=== PATIENT | female | born 1945 | race American Indian/Alaskan Native ===

== ENCOUNTER 2019-04-12 10:19 | Emergency (ER) | payer MEDICARE ==
--- NOTE | 2019-04-12 11:55 | Emergency Department Report ---
<KAIN ALVAREZ - Last Filed: 04/12/19 17:42> ED Abdominal Pain HPI - General Chief Complaint: Abdominal Pain Stated Complaint: LLQ PAIN Time Seen by Provider: 04/12/19 11:40 Source: EMS Mode of arrival: Stretcher Limitations: No Limitations - History of Present Illness Initial Comments: 73-year-old -Bul[place]ian female with a history of CVA and hypertension emergency department complaining of several day history of diarrhea and abdominal pain which she believes is secondary to patient. She was just palpitations no to take an qumw-ofl-poenwfr medications to help remey which has been unsuccessful. She is Dr. Fraga where she underwent a colonoscopy in January was prescribed some medication she states is not helping resolved constipation. She denies having constipation stools pressure and pain in the stomach is c onstipation causing the diarrhea as per her daughter's nursing friend. MD Complaint: abdominal pain -: Gradual, Sudden, week(s) (past several weeks) Location: LLQ Radiation: none Migration to: no migration Severity: mild Quality: dull Consistency: constant Improves With: nothing Worsens With: nothing Associated Symptoms: diarrhea. denies: dysuria, hematemesis, hematuria - Related Data Home Medications Medication Instructions Recorded Confirmed Last Taken Acetaminophen [Tylenol] 500 mg PO Q8H PRN 04/12/19 04/12/19 Unknown Aspirin/Dipyridamole 1 each PO DAILY 04/12/19 04/12/19 Unknown [Aspirin-Dipyridam ER 25-200 mg] Carvedilol [Coreg] 6.25 mg PO BID 04/12/19 04/12/19 Unknown Ibuprofen [Motrin] 800 mg PO TID 04/12/19 04/12/19 Unknown Losartan/Hydrochlorothiazide 1 each PO DAILY 04/12/19 04/12/19 Unknown [Hyzaar 100-12.5 Tablet] Omeprazole 20 mg PO DAILY 04/12/19 04/12/19 Unknown Rosuvastatin Calcium [Crestor] 10 mg PO QHS 04/12/19 04/12/19 Unknown amLODIPine [Norvasc] 10 mg PO DAILY 04/12/19 04/12/19 Unknown Previous Rx's Medication Instructions Recorded Last Taken Type Ciprofloxacin HCl [Ciprofloxacin 500 mg PO Q12HR #28 tab 04/12/19 Unknown Rx TAB] Hyoscyamine Subl [Levsin Sl 0.125 0.125 mg SL Q6HR PRN #20 tab 04/12/19 Unknown Rx TAB] Ondansetron [Zofran ODT TAB] 8 mg PO Q12HR #14 tab.rapdis 04/12/19 Unknown Rx metroNIDAZOLE [Flagyl] 500 mg PO Q12HR #28 tab 04/12/19 Unknown Rx Allergies Allergy/AdvReac Type Severity Reaction Status Date / Time No Known Allergies Allergy Verified 04/12/19 11:23 ED Past Medical Hx - Past Medical History Previous Medical History?: Yes Hx Hypertension: Yes Hx CVA: Yes (2012) - Surgical History Past Surgical History?: No - Social History Smoking Status: Never Smoker Substance Use Type: None - Medications Home Medications: Home Medications Medication Instructions Recorded Confirmed Last Taken Type Acetaminophen [Tylenol] 500 mg PO Q8H PRN 04/12/19 04/12/19 Unknown History Aspirin/Dipyridamole 1 each PO DAILY 04/12/19 04/12/19 Unknown History [Aspirin-Dipyridam ER 25-200 mg] Carvedilol [Coreg] 6.25 mg PO BID 04/12/19 04/12/19 Unknown History Ciprofloxacin HCl [Ciprofloxacin 500 mg PO Q12HR #28 tab 04/12/19 Unknown Rx TAB] Hyoscyamine Subl [Levsin Sl 0.125 0.125 mg SL Q6HR PRN #20 tab 04/12/19 Unknown Rx TAB] Ibuprofen [Motrin] 800 mg PO TID 04/12/19 04/12/19 Unknown History Losartan/Hydrochlorothiazide 1 each PO DAILY 04/12/19 04/12/19 Unknown History [Hyzaar 100-12.5 Tablet] Omeprazole 20 mg PO DAILY 04/12/19 04/12/19 Unknown History Ondansetron [Zofran ODT TAB] 8 mg PO Q12HR #14 tab.rapdis 04/12/19 Unknown Rx Rosuvastatin Calcium [Crestor] 10 mg PO QHS 04/12/19 04/12/19 Unknown History amLODIPine [Norvasc] 10 mg PO DAILY 04/12/19 04/12/19 Unknown History metroNIDAZOLE [Flagyl] 500 mg PO Q12HR #28 tab 04/12/19 Unknown Rx ED Physical Exam - General Limitations: No Limitations General appearance: alert, in no apparent distress - Head Head exam: Present: atraumatic, normocephalic - Eye Eye exam: Present: normal appearance - ENT ENT exam: Present: mucous membranes moist - Neck Neck exam: Present: normal inspection - Respiratory Respiratory exam: Present: normal lung sounds bilaterally. Absent: respiratory distress - Cardiovascular Cardiovascular Exam: Present: regular rate, normal rhythm. Absent: systolic murmur, diastolic murmur, rubs, gallop - GI/Abdominal GI/Abdominal exam: Present: soft, tenderness (LLQ), normal bowel sounds. Absent: guarding, rebound, mass, bruit, pulsatile mass - Extremities Exam Extremities exam: Present: normal inspection - Back Exam Back exam: Present: normal inspection - Neurological Exam Neurological exam: Present: alert, oriented X3 - Psychiatric Psychiatric exam: Present: normal affect, normal mood - Skin Skin exam: Present: warm, dry, intact, normal color. Absent: rash ED Medical Decision Making - Lab Data Result diagrams: 04/12/19 12:41 04/12/19 12:41 - Radiology Data Radiology results: report reviewed - Medical Decision Making 73-year-old Bulgarian female with a few week history of area lower abdominal pain with thisfor constipation. Her CT scan did support diverticulitis which we discussed with her in detail plan is to discharge her with Cipro Flagyl cocktail in conjunction with Zofran and Levsin for her intestinal associate pain. She expressed understanding. He had no other complaints or concerns. The patient has remained hemodynamically stable throughout entire ED visit ED Disposition Clinical Impression: Sigmoid diverticulitis Disposition: DC-01 TO HOME OR SELFCARE Is pt being admited?: No Does the pt Need Aspirin: No Condition: Stable Instructions: Diverticulitis (ED), Diverticulitis Diet (ED), Abdominal Pain (ED) Prescriptions: Ciprofloxacin HCl [Ciprofloxacin TAB] 500 mg PO Q12HR #28 tab metroNIDAZOLE [Flagyl] 500 mg PO Q12HR #28 tab Hyoscyamine Subl [Levsin Sl 0.125 TAB] 0.125 mg SL Q6HR PRN #20 tab PRN Reason: abdominal cramps and spasms Ondansetron [Zofran ODT TAB] 8 mg PO Q12HR #14 tab.[place] Referrals: JODEE HARRISON MD [Primary Care Provider] - 3-5 Days <ANDRES GOMEZ - Last Filed: 04/14/19 05:13> ED Review of Systems ROS: Stated complaint: LLQ PAIN Other details as noted in HPI ED Course Vital Signs 04/12/19 04/12/19 04/12/19 10:30 12:00 13:54 Temperature 98.2 F Pulse Rate 76 68 66 Respiratory 16 18 18 Rate Blood Pressure 153/66 Blood Pressure 150/76 143/67 [Left] O2 Sat by Pulse 100 99 100 Oximetry 04/12/19 04/12/19 15:23 17:04 Temperature Pulse Rate 66 71 Respiratory 18 18 Rate Blood Pressure Blood Pressure 135/56 138/78 [Left] O2 Sat by Pulse 100 100 Oximetry - Reevaluation(s) Reevaluation #1: 04/14/19 05:03 CT scan results are reviewed and appreciated by myself, they were resulted after my shift had ended, and I had left the department. It does not appear that this was discussed with another attending physician. We are going to have the patient called back for repeat evaluation, given possibility of mi croperforation. ED Medical Decision Making - Lab Data Result diagrams: 04/12/19 12:41 04/12/19 12:41 Critical care attestation.: If time is entered above; I have spent that time in minutes in the direct care of this critically ill patient, excluding procedure time. ED Disposition Is pt being admited?: No Does the pt Need Aspirin: No
--- NOTE | 2019-04-12 12:15 | XRay Report ---
ABDOMINAL SERIES WITH CHEST X-RAY ONE VIEW HISTORY: Constipation, abdominal pain. COMPARISON: None. FINDINGS: Supine and upright views the abdomen demonstrate no evidence for dilated bowel, fluid level s or free air. No evidence for constipation. No pathologic calcifications are detected. The organ sha dows are unremarkable. Single view of the chest is within normal limits. IMPRESSION: No significant abnormality. Signer Name: Giacomo Smith Jr, MD Signed: 04/12/2019 12:11 PM Workstation Name: [id number]
[2019-04-12] MEDS ORDERED: MORPHINE 2 MG/1 ML INJ IV ONE (12:16)
[2019-04-12] MEDS ORDERED: SODIUM CHLORIDE 0.9% 500 ML 500 ML IV ONE (12:19)
--- NOTE | 2019-04-12 12:20 | Event Note ---
Date of service: 04/12/19 Face to Face: 73-year-old female presenting with left lower quadrant abdominal pain. She endorses one bowel movement today and yesterday. She is fairly tender in her left lower quadrant. Plan is to check basic laboratory studies, treat symptoms, obtain EKG, CT scan of abdomen and pelvis, and reassess after data points. After initial pain medication, patient reportedly feeling improved. Lab Results 04/12/19 04/12/19 04/12/19 Range/Units 12:41 12:41 12:41 WBC 9.4 (4.5-11.0) K/mm3 RBC 3.92 (3.65-5.03) M/mm3 Hgb 12.2 (10.1-14.3) gm/dl Hct 36.5 (30.3-42.9) % MCV 93 (79-97) fl MCH 31 (28-32) pg MCHC 33 (30-34) % RDW 14.9 (13.2-15.2) % Plt Count 253 (140-440) K/mm3 Lymph % (Auto) 9.0 L (13.4-35.0) % [place] % (Auto) 7.9 H (0.0-7.3) % Eos % (Auto) 0.3 (0.0-4.3) % Baso % (Auto) 0.6 (0.0-1.8) % Lymph # 0.8 L (1.2-5.4) K/mm3 [place] # 0.7 (0.0-0.8) K/mm3 Eos # 0.0 (0.0-0.4) K/mm3 Baso # 0.1 (0.0-0.1) K/mm3 Seg Neutrophils % 82.2 H (40.0-70.0) % Seg Neutrophils # 7.7 (1.8-7.7) K/mm3 Sodium 140 (137-145) mmol/L Potassium 4.9 (3.6-5.0) mmol/L Chloride 103.7 (98-107) mmol/L Carbon Dioxide 27 (22-30) mmol/L Anion Gap 14 mmol/L BUN 11 (7-17) mg/dL Creatinine 1.0 (0.7-1.2) mg/dL Estimated GFR > 60 ml/min BUN/Creatinine Ratio 11 % Glucose 95 (65-100) mg/dL Lactic Acid 0.80 (0.7-2.0) mmol/L Calcium 9.3 (8.4-10.2) mg/dL Magnesium 2.20 (1.7-2.3) mg/dL Total Bilirubin 0.70 (0.1-1.2) mg/dL AST 27 (5-40) units/L ALT 25 (7-56) units/L Alkaline Phosphatase 109 (35-129) units/L Total Creatine Kinase 251 H (30-135) units/L Total Protein 7.4 (6.3-8.2) g/dL Albumin 3.9 (3.9-5) g/dL Albumin/Globulin Ratio 1.1 % Lipase 31 (13-60) units/L Lab Results 04/12/19 04/12/19 04/12/19 Range/Units 12:41 12:41 12:41 WBC 9.4 (4.5-11.0) K/mm3 RBC 3.92 (3.65-5.03) M/mm3 Hgb 12.2 (10.1-14.3) gm/dl Hct 36.5 (30.3-42.9) % MCV 93 (79-97) fl MCH 31 (28-32) pg MCHC 33 (30-34) % RDW 14.9 (13.2-15.2) % Plt Count 253 (140-440) K/mm3 Lymph % (Auto) 9.0 L (13.4-35.0) % [place] % (Auto) 7.9 H (0.0-7.3) % Eos % (Auto) 0.3 (0.0-4.3) % Baso % (Auto) 0.6 (0.0-1.8) % Lymph # 0.8 L (1.2-5.4) K/mm3 [place] # 0.7 (0.0-0.8) K/mm3 Eos # 0.0 (0.0-0.4) K/mm3 Baso # 0.1 (0.0-0.1) K/mm3 Seg Neutrophils % 82.2 H (40.0-70.0) % Seg Neutrophils # 7.7 (1.8-7.7) K/mm3 Sodium 140 (137-145) mmol/L Potassium 4.9 (3.6-5.0) mmol/L Chloride 103.7 (98-107) mmol/L Carbon Dioxide 27 (22-30) mmol/L Anion Gap 14 mmol/L BUN 11 (7-17) mg/dL Creatinine 1.0 (0.7-1.2) mg/dL Estimated GFR > 60 ml/min BUN/Creatinine Ratio 11 % Glucose 95 (65-100) mg/dL Lactic Acid 0.80 (0.7-2.0) mmol/L Calcium 9.3 (8.4-10.2) mg/dL Magnesium 2.20 (1.7-2.3) mg/dL Total Bilirubin 0.70 (0.1-1.2) mg/dL AST 27 (5-40) units/L ALT 25 (7-56) units/L Alkaline Phosphatase 109 (35-129) units/L Total Creatine Kinase 251 H (30-135) units/L Total Protein 7.4 (6.3-8.2) g/dL Albumin 3.9 (3.9-5) g/dL Albumin/Globulin Ratio 1.1 % Lipase 31 (13-60) units/L
[2019-04-12 13:03] LABS: Basophils # (Auto) 0.1 K/mm3 (0.0-0.1); Basophils % (Auto) 0.6 % (0.0-1.8); Eosinophils % (Auto) 0.3 % (0.0-4.3); Hematocrit 36.5 % (30.3-42.9); Hemoglobin 12.2 gm/dl (10.1-14.3); Lymphocytes # (Auto) 0.8 K/mm3 (1.2-5.4); Mean Corpuscular HGB Conc 33 % (30-34); Mean Corpuscular Volume 93 fl (79-97); Monocytes # (Auto) 0.7 K/mm3 (0.0-0.8); Monocytes % (Auto) 7.9 % (0.0-7.3); Platelet Count 253 K/mm3 (140-440); Red Blood Count 3.92 M/mm3 (3.65-5.03); Red Cell Distribution Width 14.9 % (13.2-15.2)
[2019-04-12 13:21] LABS: Alanine Aminotransferase 25 units/L (7-56); Albumin 3.9 g/dL (3.9-5); BUN/Creatinine Ratio 11; Blood Urea Nitrogen 11 mg/dL (7-17); Calcium 9.3 mg/dL (8.4-10.2); Hemolysis Index 13
[2019-04-12] MEDS ORDERED: SODIUM CHLORIDE 0.9% 1000 ML 1,000 ML IV ONE (13:21)
[2019-04-12] MEDS ORDERED: SODIUM CHLORIDE 0.9% 1000 ML 1,000 ML ONE (13:22)
[2019-04-12 14:25] LABS: Bacteria,Urine 1+ /HPF (Negative); Bilirubin,Urine NEG (Negative); Blood,Urine NEG (Negative); Color,Urine Straw (Yellow); Hyaline Casts,Urine 1 /LPF; Protein,Urine <15 mg/dL mg/dL (Negative); RBC,Urine < 1.0 /HPF (0.0-6.0); Urobilinogen,Urine < 2.0 mg/dL (<2.0)
--- NOTE | 2019-04-12 16:02 | Cat Scan Report ---
CT ABDOMEN AND PELVIS WITH CONTRAST HISTORY: Left lower quadrant abdominal pain, weakness COMPARISON: None. TECHNIQUE: Axial CT images were obtained through the abdomen and pelvis after 100 cc of Omnipaque 300 intravenously. Sagittal and coronal reformatted images. All CT scans at this location are performed using CT dose reduction for ALARA by means of automated exposure control. FINDINGS: CT ABDOMEN: Lung Bases: Clear. Liver: No significant abnormality. Biliary: No significant abnormality. Spleen: No significant abnormality. Unenlarged. Pancreas: No significant abnormality. Adrenals: No significant abnormality. Kidneys: There are a few scattered simple renal cysts bilaterally. The largest cyst measures 2.1 cm i n the superior right kidney. No evidence for mass, calculus or hydronephrosis. Lymphatics: No lymphadenopathy. Vasculature: Moderate aortic and iliac calcifications. No aneurysm. Bowel/Peritoneum: There are several diverticula throughout the length of the colon. There is a focal area of circumferential thickening and surrounding inflammatory change in the sigmoid region consiste nt with acute diverticulitis. No evidence for large free air or abscess. There does appear to be a fe w flecks of free air medial to the sigmoid colon. The remaining bowel loops are unremarkable. I belie ve I see the appendix inferior to the cecum which is unremarkable. CT PELVIS: : Hysterectomy changes are suspected. No adnexal abnormality. The bladder and distal ureters are un remarkable. Osseous Structures: Osteopenia. Mild thoracolumbar spondylosis. Additional Findings: None IMPRESSION: Sigmoid diverticulitis. Signer Name: Giacomo Smith Jr, MD Signed: 04/12/2019 3:57 PM Workstation Name: [id number]
[2019-04-12 17:04] VITALS: BP 138/78
[2019-04-12] MEDS ORDERED: levoFLOXacin 500 MG TAB PO ONE (17:30)
[2019-04-12] MEDS ORDERED: metroNIDAZOLE 500 MG TAB PO STA (17:31)
== END 2019-04-12 17:52 | disposition home or self-care (01) ==
LOC: ED 10:19
DX: K57.12 Diverticulitis of small intestine without perforation or abscess without bleeding (principal); I10 Essential (primary) hypertension; Z79.82 Long term (current) use of aspirin; Z79.899 Other long term (current) drug therapy; Z86.73 Personal history of transient ischemic attack (TIA), and cerebral infarction without residual deficits
CPT/HCPCS: 36415; 74022; 74177; 80053; 81001; 82140; 82550; 83690; 83735; 85025; 93005; 93010; 96361; 96374; 99285; J2270; J7030; Q9967

== ENCOUNTER 2019-04-15 09:00 | Observation (INO) | payer MEDICARE ==
--- NOTE | 2019-04-15 09:54 | Emergency Department Report ---
HPI - General Chief Complaint: Medical Clearance Time Seen by Provider: 04/15/19 09:10 - HPI HPI: 73-year-old -Mauritian female presents to the emergency department after she was called and told she needed to return for repeat evaluation. The patient says she is unsure as to the reason why she needs to come back. The patient was seen here on Wednesday04/12/19, 3 days ago. At that time she presented with some left lower quadrant abdominal pain, diarrhea, that have been going on for the past week. She has a past medical history of previous CVA and hypertension. She also has a history of having a colonoscopy done by Dr. Fraga in December of s year. She had a full workup during her last ED visit including blood work and a CT scan of the abdomen and pelvis with IV contrast. She was given the diagnosis of sigmoid diverticulitis and sent home with Cipro, Flagyl, hyoscamine. In reviewing the previous chart to see why the patient may have been told to come back, the CT scan results also mentioned the concern for possible microperforation in the area of the sigmoid diverticulitis. This does not appear to have been addressed by the mid-level provider who saw the patient and the results had returned after the attending physician had left from his shift. That physician and then requested the patient to return. The patient does still have some abdominal discomfort, currently 6 out of 10 in intensity. She has been taking the medications compliantly. ED Past Medical Hx - Past Medical History Hx Hypertension: Yes Hx CVA: Yes (2012) - Social History Smoking Status: Unknown if ever smoked - Medications Home Medications: Home Medications Medication Instructions Recorded Confirmed Last Taken Type Acetaminophen [Tylenol] 500 mg PO Q8H PRN 04/12/19 04/15/19 Unknown History Aspirin/Dipyridamole 1 each PO DAILY 04/12/19 04/15/19 Unknown History [Aspirin-Dipyridam ER 25-200 mg] Carvedilol [Coreg] 6.25 mg PO BID 04/12/19 04/15/19 04/15/19 08:00 History Ciprofloxacin HCl [Ciprofloxacin 500 mg PO Q12HR #28 tab 04/12/19 04/15/19 04/15/19 07:30 Rx TAB] Hyoscyamine Subl [Levsin Sl 0.125 0.125 mg SL Q6HR PRN #20 tab 04/12/19 04/15/19 Unknown Rx TAB] Ibuprofen [Motrin] 800 mg PO TID 04/12/19 04/15/19 Unknown History Losartan/Hydrochlorothiazide 1 each PO DAILY 04/12/19 04/15/19 04/15/19 08:00 History [Hyzaar 100-12.5 Tablet] Omeprazole 20 mg PO DAILY 04/12/19 04/15/19 Unknown History Ondansetron [Zofran ODT TAB] 8 mg PO Q12HR #14 tab.rapdis 04/12/19 04/15/19 Unknown Rx Rosuvastatin Calcium [Crestor] 10 mg PO QHS 04/12/19 04/15/19 04/14/19 21:00 History amLODIPine [Norvasc] 10 mg PO DAILY 04/12/19 04/15/19 04/15/19 08:00 History metroNIDAZOLE [Flagyl] 500 mg PO Q12HR #28 tab 04/12/19 04/15/19 04/15/19 08:00 Rx ED Review of Systems ROS: Stated complaint: DR AMIE PATIENT /DR SHERWOOD Other details as noted in HPI Physical Exam - Physical Exam Vital Signs: Vital Signs 04/15/19 04/15/19 09:03 09:36 Temperature 98.0 F 98.4 F Pulse Rate 65 66 Respiratory 19 19 Rate Blood Pressure 159/62 126/52 [Right] O2 Sat by Pulse 98 97 Oximetry Physical Exam: GENERAL: The patient is well-developed well-nourished. HENT: Normocephalic. Atraumatic. Patient has moist mucous membranes. EYES: Extraocular motions are intact. NECK: Supple. Trachea is midline. CHEST/LUNGS: Clear to auscultation. There is no respiratory distress noted. HEART/CARDIOVASCULAR: Regular. There is no tachycardia. There is no murmur. ABDOMEN: Abdomen is soft. Lower abdominal tenderness to palpation. No guarding. Patient has normal bowel sounds. There is no abdominal distention. SKIN: Skin is warm and dry. NEURO: The patient is awake, alert, and oriented. The patient is cooperative. The patient has no focal neurologic deficits. Normal speech. MUSCULOSKELETAL: There is no tenderness or deformity. There is no evidence of acute injury. ED Course Vital Signs 10/12/19 10/12/19 09:03 09:36 Temperature 98.0 F 98.4 F Pulse Rate 65 66 Respiratory 19 19 Rate Blood Pressure 159/62 126/52 [Right] O2 Sat by Pulse 98 97 Oximetry - Consultations Consultation #1: I spoke with the general surgeon search engine optimization specialist, Dr. Lam, regarding the previous CT findings of sigmoid diverticulitis with possible microperforation. He says that the issue is more regarding whether or not the patient is getting appropriate improvement or treatment of the diverticulitis with the outpatient oral antibiotics. There would be no immediate intervention or procedure for the possible microperforations. His recommendation is that the patient can follow up outpatient with GI next week if she is showing appropriate improvement, if not, then the patient should be admitted to the hospital for IV antibiotics and further evaluation. 04/15/19 10:08 ED Medical Decision Making - Lab Data Result diagrams: 04/15/19 10:09 04/15/19 10:09 - Radiology Data Radiology results: image reviewed interpreted by me: Abdominal x-ray shows nonspecific nonobstructive bowel gas - Medical Decision Making This patient returns to the emergency department after she was called by this facility to return for reevaluation. The previous CT scan showed sigmoid diverticulitis with questionable microperforations. An abdominal x-ray was done today that does not show any free air. Labs have been unremarkable. Per the consultation section, I spoke with general surgery who was not concerned with the microperforation possibilities but says the patient should be evaluated for whether or not she is improving with the diverticulitis. The patient has been on the antibiotics and pain medication for the past 4 days and says that her pain scale has only gone down about 1 and is still about a 7 or 8 out of 10. This appears consistent with failed outpatient treatment, and after speaking with Gen. surgery, the patient will be admitted for further evaluation and treatment. She was accepted for admission by the hospitalist service. - Differential Diagnosis diverticulitis, perforation, colitis, abscess Critical Care Time: No Critical care attestation.: If time is entered above; I have spent that time in minutes in the direct care of this critically ill patient, excluding procedure time. ED Disposition Clinical Impression: Sigmoid diverticulitis, Failure of outpatient treatment Abdominal pain Qualifiers: Abdominal location: generalized Qualified Code(s): R10.84 - Generalized abdominal pain Disposition: DC-09 OP ADMIT IP TO THIS HOSP Is pt being admited?: Yes Condition: Fair Time of Disposition: 10:10
--- NOTE | 2019-04-15 10:01 | XRay Report ---
ABDOMEN 2 VIEW(S) INDICATION / CLINICAL INFORMATION: abdominal pain, CT evidence of microperforation. COMPARISON: CT 04/12/2019. FINDINGS: TUBES / LINES: None. BOWEL GAS PATTERN: No significant abnormality. FREE AIR / EXTRALUMINAL GAS: None seen. ADDITIONAL FINDINGS: No significant additional findings. IMPRESSION: 1. No significant abnormality. Signer Name: Yury Watts MD Signed: 04/15/2019 9:57 AM Workstation Name: [id number]
[2019-04-15] MEDS ORDERED: metroNIDAZOLE/NS 500 MG/100 ML 500 MG/100 ML BAG IV ONE (10:07)
[2019-04-15] MEDS ORDERED: PIPERACIL/TAZOBACTA 4.5/NS 100 4.5 GM/100 ML VIAL IV ONE (10:07)
[2019-04-15] MEDS ORDERED: SODIUM CHLORIDE 0.9% 1000 ML 1,000 ML IV ONE (10:07)
[2019-04-15] MEDS ORDERED: ONDANSETRON 4 MG/2 ML INJ IV PRN (10:34)
[2019-04-15] MEDS ORDERED: ACETAMINOPHEN 325 MG TAB PO PRN (10:34)
[2019-04-15] MEDS ORDERED: oxyCODONE /ACETAMINOPHEN 5-325MG TAB PO PRN (10:34)
--- NOTE | 2019-04-15 10:47 | History and Physical Report ---
History of Present Illness Date of examination: 04/15/19 Date of admission: 04/15/19 10:10 Chief complaint: Abdominal pain History of present illness: 73-year-old -Cym[place] female with past medical history significant for hypertension, hyperlipidemia was called by ER physician to come back to the hospital. Patient had abdominal pain for the last 6 days and 4 days ago the patient presented to the emergency department and diagnosed with sigmoid diverticulitis and discharged home with Cipro, Flagyl and antiemetics . In the physician review the CT was done, there was a concern for microperforation and patient told to come back. Patient is still complaining left lower quadrant crampy , sometimes sharp pain, 6 out of 10 intensity, with no radiation, no alleviating or aggravating factors identified. Patient said she has history of constipation for the last 1 month but pleasant last 2 days she had bowel movement which was loose. Patient denied fever, chills, nausea, vomiting. Past History Past Medical History: hypertension, hyperlipidemia Past Surgical History: No surgical history Social history: full code. denies: smoking, alcohol abuse, prescription drug abuse, IV drug use Family history: no significant family history Medications and Allergies Allergies Allergy/AdvReac Type Severity Reaction Status Date / Time No Known Allergies Allergy Verified 04/12/19 11:23 Home Medications Medication Instructions Recorded Confirmed Last Taken Type Acetaminophen [Tylenol] 500 mg PO Q8H PRN 04/12/19 04/12/19 Unknown History Aspirin/Dipyridamole 1 each PO DAILY 04/12/19 04/12/19 Unknown History [Aspirin-Dipyridam ER 25-200 mg] Carvedilol [Coreg] 6.25 mg PO BID 04/12/19 04/12/19 Unknown History Ciprofloxacin HCl [Ciprofloxacin 500 mg PO Q12HR #28 tab 04/12/19 Unknown Rx TAB] Hyoscyamine Subl [Levsin Sl 0.125 0.125 mg SL Q6HR PRN #20 tab 04/12/19 Unknown Rx TAB] Ibuprofen [Motrin] 800 mg PO TID 04/12/19 04/12/19 Unknown History Losartan/Hydrochlorothiazide 1 each PO DAILY 04/12/19 04/12/19 Unknown History [Hyzaar 100-12.5 Tablet] Omeprazole 20 mg PO DAILY 04/12/19 04/12/19 Unknown History Ondansetron [Zofran ODT TAB] 8 mg PO Q12HR #14 tab.rapdis 04/12/19 Unknown Rx Rosuvastatin Calcium [Crestor] 10 mg PO QHS 04/12/19 04/12/19 Unknown History amLODIPine [Norvasc] 10 mg PO DAILY 04/12/19 04/12/19 Unknown History metroNIDAZOLE [Flagyl] 500 mg PO Q12HR #28 tab 04/12/19 Unknown Rx Active Meds: Active Medications Acetaminophen (Tylenol) 650 mg PO Q4H PRN PRN Reason: Pain MILD(1-3)/Fever >100.5/RUTH Docusate Sodium (Colace) 100 mg PO BID [facility] Famotidine (Pepcid) 20 mg PO BID [facility] Sodium Chloride (Nacl 0.9% 1000 Ml) 1,000 mls @ 125 mls/hr IV ONCE ONE Stop: 04/15/19 18:06 Ondansetron HCl (Zofran) 4 mg IV Q8H PRN PRN Reason: Nausea And Vomiting Oxycodone/Acetaminophen (Percocet 5/325) 1 tab PO Q6H PRN PRN Reason: Pain, Moderate (4-6) Senna (Senokot) 8.6 mg PO Q12HR [facility] Sodium Chloride (Sodium Chloride Flush Syringe 10 Ml) 10 ml IV BID [facility] Sodium Chloride (Sodium Chloride Flush Syringe 10 Ml) 10 ml IV PRN PRN PRN Reason: LINE FLUSH Review of Systems Constitutional: no weight loss, no weight gain, no fever, no chills Ears, nose, mouth and throat: no ear pain, no ear discharge, no epistaxis, no bleeding gums, no voice changes, no post-nasal drip Breasts: normal Cardiovascular: no chest pain, no orthopnea, no dyspnea on exertion, no paroxysmal nocturnal dyspnea Respiratory: no cough, no cough with sputum, no congestion, no sleep apnea Gastrointestinal: abdominal pain, no nausea, no vomiting, no diarrhea, no BRBPR, no excessive gas Genitourinary Female: no dyspareunia, no nocturia Menstruation: postmenopausal Rectal: no pain, no incontinence, no itching, no flatulence Musculoskeletal: no neck stiffness, no hot joints, no frequent falls Integumentary: no rash, no pruritis, no change in hair/nails Neurological: no head injury, no paralysis, no weakness, no vertigo, no gait dysfunction Psychiatric: no anxiety, no change in sleep habits, no paranoia, no depression Endocrine: no cold intolerance, no heat intolerance, no polyphagia Hematologic/Lymphatic: no easy bruising, no easy bleeding Allergic/Immunologic: no urticaria, no allergic rhinitis Exam - Physical Exam Narrative exam: Not in cardiopulmonary distress. The patient appeared well nourished and normally developed. Vital signs as documented. Head exam is unremarkable. No scleral icterus . Neck is without jugular venous distension, thyromegaly, or carotid bruits. Lungs are clear to auscultation. Cardiac exam reveals regular rate and Rhythm. First and second heart sounds normal. No murmurs, rubs or gallops. Abdominal exam reveals mild left lower quadrant tenderness. Extremities are nonedematous and both femoral and pedal pulses are normal. ADMITTING REPRESENTATIVE: Alert and oriented 3. No focal weakness. - Constitutional Vitals: Temp Pulse Resp BP Pulse Ox 98.4 F 54 L 12 127/52 99 04/15/19 09:36 04/15/19 10:30 04/15/19 10:30 04/15/19 10:30 04/15/19 10:30 Assessment and Plan Assessment and plan: Acute diverticulitis not responding well to by mouth antibiotics - On Previous CT there is a suspicion of microperforation, I will repeat CT of abdomen with PO contrast - Patient started with IV Levaquin and Flagyl - Pain control - General surgery Dr. Lam was consulted in the ED and with IV antibiotic treatment Hypertension, hyperlipidemia - blood is controlled - We'll restart appropriate home medications DVT prophylaxis - heparin Disposition - Admit to medical floor Advance Directives: Yes VTE prophylaxis?: Chemical Plan of care discussed with patient/family: Yes
[2019-04-15 11:09] LABS: Basophils % (Auto) 0.3 % (0.0-1.8); Eosinophils % (Auto) 0.7 % (0.0-4.3); Hematocrit 38.1 % (30.3-42.9); Hemoglobin 12.7 gm/dl (10.1-14.3); Lymphocytes # (Auto) 0.9 K/mm3 (1.2-5.4); Mean Corpuscular HGB Conc 33 % (30-34); Mean Corpuscular Volume 96 fl (79-97); Monocytes # (Auto) 0.6 K/mm3 (0.0-0.8); Monocytes % (Auto) 9.1 % (0.0-7.3); Platelet Count 261 K/mm3 (140-440); Red Blood Count 3.98 M/mm3 (3.65-5.03); Red Cell Distribution Width 14.6 % (13.2-15.2)
[2019-04-15 11:25] LABS: Albumin 4.1 g/dL (3.9-5); Calcium 9.6 mg/dL (8.4-10.2)
--- NOTE | 2019-04-15 12:48 | Cat Scan Report ---
CT ABDOMEN AND PELVIS WITHOUT IV CONTRAST INDICATION: microperforation on previous CT. COMPARISON: CT 04/12/2019. TECHNIQUE: All CT scans at this facility use dose modulation, automated exposure control, iterative reconstructi on or weight based dosing, when appropriate, to reduce radiation dose to as low as reasonably achieva ble. FINDINGS: Lung Bases: 3 mm noncalcified right middle lobe nodule on image 6 is unchanged. Additional nodular de nsities in the more inferior right middle lobe are stable as well. Noncalcified nodule in the left lana ng base is unchanged as well. Skeletal System: No acute abnormality. ABDOMEN: Liver: No significant abnormality. Gallbladder: No significant abnormality. Bile Ducts: No significant abnormality. Pancreas: No significant abnormality. Spleen: No significant abnormality. Adrenals: No significant abnormality. Right Kidney: No significant abnormality. Left Kidney: Subcentimeter exophytic lesion arising from the lateral cortex of the left kidney is unc hanged. This does not CT anterior for simple cyst. Upper GI tract: No significant abnormality. Lymph Nodes: No significant adenopathy. Aorta: No significant abnormality. Additional Findings: No significant abnormality. PELVIS: Colon: Proximal sigmoid diverticulitis has improved. There is no extraluminal gas or peridiverticular abscess. Diverticulosis is noted. Urinary Bladder and Distal Ureters: No significant abnormality. Appendix: No significant abnormality. Lymph Nodes: No significant adenopathy. Additional Findings: None. IMPRESSION: 1. Previously seen acute distal descending colonic/proximal sigmoid diverticulitis has improved. No free air, free fluid, or abscess. 2. Punctate exophytic hypodensity arising from the lateral cortex of the left kidney does not meet C T criteria for simple cyst. Sonographic follow-up is recommended to confirm that this is cystic and n ot solid. 3. Bibasilar subcentimeter pulmonary nodules are again noted, unchanged. The largest of these measure s 3 mm. See below for follow-up recommendations. INCIDENTAL PULMONARY NODULE RECOMMENDATIONS Solid Nodule size <6 mm -- Single or Multiple - Low Risk Patient: No routine follow-up - High Risk Patient: Optional CT at 12 months Note These recommendations do not apply to lung cancer screening, patients with immunosuppression, o r patients with known primary cancer. Note Newly detected indeterminate nodule in persons 35 years of age or older. Persons under the age of 35 should not receive follow-up unless there is a known primary cancer. Low Risk Patient -- minimal or absent history of smoking and of other known risk factors. High Risk Patient -- history of smoking or of other known risk factors. Nodule dimensions are average of long and short axes, rounded to the nearest millimeter. Based on 2017 Fleischner Society Guidelines found in Radiology 2017 284:228-243. https://[email or web address] [email or web address]/[email or web address] Signer Name: Yury Watts MD Signed: 04/15/2019 12:44 PM Workstation Name: [email or web address]
[2019-04-15] MEDS: HEPARIN 5,000 UNIT/1 ML VIAL SUB-Q SCH ×2 (18:17→21:55)
[2019-04-15] MEDS: metroNIDAZOLE/NS 500 MG/100 ML 500 MG/100 ML BAG IV SCH (18:18)
[2019-04-15] MEDS: DOCUSATE SODIUM 100 MG CAP PO SCH (21:55)
[2019-04-15] MEDS: SENNOSIDES 8.6 MG TAB PO SCH (21:55)
[2019-04-15] MEDS: FAMOTIDINE 20 MG TAB PO SCH (21:55)
[2019-04-16] MEDS: metroNIDAZOLE/NS 500 MG/100 ML 500 MG/100 ML BAG IV SCH ×2 (02:38→09:29)
[2019-04-16 03:16] VITALS: BP 139/59
[2019-04-16 05:38] LABS: Basophils % (Auto) 0.5 % (0.0-1.8); Eosinophils # (Auto) 0.1 K/mm3 (0.0-0.4); Eosinophils % (Auto) 2.1 % (0.0-4.3); Hematocrit 33.7 % (30.3-42.9); Hemoglobin 11.5 gm/dl (10.1-14.3); Lymphocytes # (Auto) 1.4 K/mm3 (1.2-5.4); Lymphocytes % (Auto) 35.1 % (13.4-35.0); Mean Corpuscular HGB Conc 34 % (30-34); Mean Corpuscular Volume 94 fl (79-97); Monocytes # (Auto) 0.5 K/mm3 (0.0-0.8); Platelet Count 256 K/mm3 (140-440); Red Cell Distribution Width 14.4 % (13.2-15.2)
[2019-04-16 05:54] LABS: Calcium 8.9 mg/dL (8.4-10.2)
[2019-04-16] MEDS: HEPARIN 5,000 UNIT/1 ML VIAL SUB-Q SCH (05:55)
[2019-04-16] MEDS: FAMOTIDINE 20 MG TAB PO SCH (09:29)
[2019-04-16] MEDS: DOCUSATE SODIUM 100 MG CAP PO SCH (09:34)
[2019-04-16] MEDS: SENNOSIDES 8.6 MG TAB PO SCH (09:35)
--- NOTE | 2019-04-16 13:08 | Discharge Summary ---
Providers - Providers Date of Admission: 04/15/19 10:10 Date of discharge: 04/16/19 Attending physician: TAWNYA BRIDGES 04/15/19 10:07 Consult to Physician [CONS] Routine Comment: called answering service/livia Consulting Provider: JORGE LUIS DAVIES Physician Instructions: Reason For Exam: Sigmoid Diverticulitis with microperforations Primary care physician: MEDICAL DIRECTOR Hospitalization Condition: Fair Pertinent studies: CT abdomen/pelvis Hospital course: 73-year-old -Martiniquais female with past medical history significant for hypertension, hyperlipidemia was called by ER physician to come back to the hospital. Patient had abdominal pain for the last 6 days and 4 days ago the patient presented to the emergency department and diagnosed with sigmoid diverticulitis and discharged home with Cipro, Flagyl and antiemetics . In the ER the CT was done that time, there was a concern for microperforation and patient told to come back. Patient was still complaining of abdominal pain, CT abdomen/pelvis was repeated and showed no microperforation, and improvement on the diverticulitis. Patient was then discharged home with outpatient follow-up in stable condition. Discharge Diagnosis and Mx; Acute diverticulitis - On Previous CT there is a suspicion of microperforation, but repeat CT of abdomen with PO contrast showed no perforation and improvement of diverticulitis - Patient started with IV Levaquin and Flagyl - discharged with cipro and flagyl to complete course - General surgery Dr. Davies was consulted in the ED and recommended outpt f/u - advised for high fibre diet and bowel care Hypertension, hyperlipidemia - well controlled - cont appropriate home medications Chronic constipation, recommended stool softner and high fibre diet Disposition: - TO HOME OR SELFCARE Time spent for discharge: 34 minutes Core Measure Documentation - Palliative Care Palliative Care/ Comfort Measures: Not Applicable - Core Measures Any of the following diagnoses?: none Exam - Physical Exam Narrative exam: GENERAL: well-developed and well-nourished elderly AAF lying on bed appeared to be in no discomfort. HEENT: Normocephalic. Atraumatic. No conjunctival congestion or icterus. Patient has moist mucous membranes. NECK: Supple. Trachea midline. CHEST/LUNGS: Clear to auscultated bilaterally, breathing nonlabored. No wheezes crackles or rhonchi. HEART/CARDIOVASCULAR: Regular in rate and rhythm. S1 and S2 positive. ABDOMEN: Abdomen is soft, mild LLQ tender. Patient has normal bowel sounds. SKIN: There is no rash. Warm and dry. NEURO: No focal motor deficit. Follows command. MUSCULOSKELETAL: No joint effusion or tenderness. EXTRIMITY: No edema, no cyanosis or clubbing. PSYCH: Cooperative. - Constitutional Vitals: Temp Pulse Resp BP Pulse Ox 98.5 F 55 L 18 139/59 98 04/16/19 03:14 04/16/19 10:00 04/16/19 03:14 04/16/19 03:14 04/16/19 03:14 Plan Activity: advance as tolerated Weight Bearing Status: Weight Bear as Tolerated Diet: advance as tolerated (high fibre diet) Follow up with: PRIMARY CARE, [Primary Care Provider] - 7 Days AVINASH BLANCO MD [Staff Physician] - 7 Days Prescriptions: Psyllium Husk [Metamucil] 0.4 gm PO DAILY #30 capsule
--- NOTE | 2019-04-16 13:18 | Consultation ---
History of Present Illness Consult date: 04/16/19 Reason for consult: abdominal pain Requesting physician: ABRAHAM CONKLIN Chief complaint: LLQ pain - History of present illness History of present illness: 73yo F originally presented to the emergency room on April 12 for left lower quadrant pain. Patient diagnosed to have diverticulitis and sent home with oral antibiotics. Patient was recalled to the emergency room when it was later discovered that there was suggestion of a microperforation. Patient reports that she actually was starting to feel little bit better. Her pain is essentially gone now. She has no fevers, chills, nausea, vomiting. She has never had this before. She reports that she just had a colonoscopy in December by Dr. Fraga and he did not comment on any abnormalities. Past History Past Medical History: hypertension, hyperlipidemia Past Surgical History: No surgical history Social history: full code. denies: smoking, alcohol abuse, prescription drug abuse, IV drug use Family history: no significant family history Medications and Allergies Allergies Allergy/AdvReac Type Severity Reaction Status Date / Time No Known Allergies Allergy Verified 04/12/19 11:23 Home Medications Medication Instructions Recorded Confirmed Last Taken Type Acetaminophen [Acetaminophen TAB] 500 mg PO Q8H PRN 04/12/19 04/15/19 Unknown History Aspirin/Dipyridamole 1 each PO DAILY 04/12/19 04/15/19 Unknown History [Aspirin-Dipyridam ER 25-200 mg] Carvedilol [Coreg] 6.25 mg PO BID 04/12/19 04/15/19 04/15/19 08:00 History Ciprofloxacin HCl [Ciprofloxacin 500 mg PO Q12HR #28 tab 04/12/19 04/15/1904/04 07:30 Rx TAB] Hyoscyamine Subl [Levsin Sl 0.125 0.125 mg SL Q6HR PRN #20 tab 04/12/19 04/15/19 Unknown Rx TAB] Losartan/Hydrochlorothiazide 1 each PO DAILY 04/12/19 04/15/19 04/15/19 08:00 History [Hyzaar 100-12.5 Tablet] Omeprazole 20 mg PO DAILY 04/12/19 04/15/19 Unknown History Ondansetron [Zofran ODT TAB] 8 mg PO Q12HR #14 tab.rapdis 04/12/19 04/15/19 Unknown Rx Rosuvastatin Calcium [Crestor] 10 mg PO QHS 04/12/19 04/15/19 04/14/19 21:00 History amLODIPine [Norvasc] 10 mg PO DAILY 04/12/19 04/15/19 04/15/19 08:00 History metroNIDAZOLE [Flagyl TAB] 500 mg PO Q12HR #28 tab 04/12/19 04/15/19 04/15/19 08:00 Rx Psyllium Husk [Metamucil] 0.4 gm PO DAILY #30 capsule 04/16/19 Unknown Rx Active Meds: Active Medications Acetaminophen (Tylenol) 650 mg PO Q4H PRN PRN Reason: Pain MILD(1-3)/Fever >100.5/RUTH Docusate Sodium (Colace) 100 mg PO BID [facility] Last Admin: 04/16/19 09:34 Dose: Not Given Documented by: Famotidine (Pepcid) 20 mg PO BID [facility] Last Admin: 04/16/19 09:29 Dose: 20 mg Documented by: Heparin Sodium (Porcine) (Heparin) 5,000 unit SUB-Q Q8HR [facility] Last Admin: 04/16/19 05:55 Dose: 5,000 unit Documented by: Levofloxacin/Dextrose (Levaquin 750mg/150ml) 750 mg in 150 mls @ 100 mls/hr IV Q24HR [facility]; Protocol Last Admin: 04/16/19 09:29 Dose: 100 mls/hr Documented by: Metronidazole (Flagyl 500 Mg/100 Ml) 500 mg in 100 mls @ 100 mls/hr IV Q8H [facility]; Protocol Last Admin: 04/16/19 09:29 Dose: 100 mls/hr Documented by: Ondansetron HCl (Zofran) 4 mg IV Q8H PRN PRN Reason: Nausea And Vomiting Oxycodone/Acetaminophen (Percocet 5/325) 1 tab PO Q6H PRN PRN Reason: Pain, Moderate (4-6) Senna (Senokot) 8.6 mg PO Q12HR [facility] Last Admin: 04/16/19 09:35 Dose: Not Given Documented by: Sodium Chloride (Sodium Chloride Flush Syringe 10 Ml) 10 ml IV BID [facility] Last Admin: 04/16/19 09:35 Dose: 10 ml Documented by: Sodium Chloride (Sodium Chloride Flush Syringe 10 Ml) 10 ml IV PRN PRN PRN Reason: LINE FLUSH Review of Systems - Constitutional no fever, no chills, no chronic pain - Cardiovascular no chest pain, no shortness of breath - Respiratory no cough - Gastrointestinal abdominal pain, constipation, no nausea, no vomiting, no hematemesis, no BRBPR, no melena, no hematochezia, no loss of appetite, no dyspepsia/bloating - Genitourinary Genitourinary: no dysuria - Muskuloskeletal no low back pain - Integumentary no rash, no pruritis, no redness, no sores, no wounds Exam Vital Signs Temp Pulse Resp BP Pulse Ox 98.0 F 65 19 159/62 98 04/15/19 09:03 04/15/19 09:03 04/15/19 09:03 04/15/19 09:03 04/15/19 09:03 - General physical appearance Positive: well developed, well nourished, no distress, no pain - Eyes Positive: normal occular movement - Respiratory Positive: normal expansion, normal respiratory effort, clear to auscultation - Cardiovascular Rhythm: regular - Abdomen Abdomen: Present: soft, tender ( very minimal in the left lower flank). Absent: distended, guarding, rigid, wound - Integumentary no rash, no growths, no abnormal pigmentation - Neurologic Neurologic: alert and oriented to time, place and person, motor strength and sensation are grossly intact - Psychiatric Psychiatric: appropriate mood/affect, intact judgment & insight, cooperative Results - Labs 04/16/19 05:03 04/16/19 05:03 Abnormal lab results 04/16/19 Range/Units 05:03 WBC 4.0 L (4.5-11.0) K/mm3 RBC 3.60 L (3.65-5.03) M/mm3 Lymph % (Auto) 35.1 H (13.4-35.0) % Branch % (Auto) 12.0 H (0.0-7.3) % Diabetes panel 04/16/19 Range/Units 05:03 Sodium 144 (137-145) mmol/L Potassium 4.3 (3.6-5.0) mmol/L Chloride 104.3 (98-107) mmol/L Carbon Dioxide 25 (22-30) mmol/L BUN 9 (7-17) mg/dL Creatinine 1.1 (0.7-1.2) mg/dL Glucose 94 (65-100) mg/dL Calcium 8.9 (8.4-10.2) mg/dL Calcium panel 04/16/19 Range/Units 05:03 Calcium 8.9 (8.4-10.2) mg/dL Pituitary panel 04/16/19 Range/Units 05:03 Sodium 144 (137-145) mmol/L Potassium 4.3 (3.6-5.0) mmol/L Chloride 104.3 (98-107) mmol/L Carbon Dioxide 25 (22-30) mmol/L BUN 9 (7-17) mg/dL Creatinine 1.1 (0.7-1.2) mg/dL Glucose 94 (65-100) mg/dL Calcium 8.9 (8.4-10.2) mg/dL Adrenal panel 04/16/19 Range/Units 05:03 Sodium 144 (137-145) mmol/L Potassium 4.3 (3.6-5.0) mmol/L Chloride 104.3 (98-107) mmol/L Carbon Dioxide 25 (22-30) mmol/L BUN 9 (7-17) mg/dL Creatinine 1.1 (0.7-1.2) mg/dL Glucose 94 (65-100) mg/dL Calcium 8.9 (8.4-10.2) mg/dL - Imaging CT scan - abdomen: report reviewed, image reviewed CT scan - pelvis: report reviewed, image reviewed Assessment and Plan - Patient Problems (1) Sigmoid diverticulitis Current Visit: Yes Status: Acute Plan to address problem: Pt stable. Patient was already showing signs of improvement prior to readmission. CT scan is much improved and her symptoms have essentially resol lizz. Okay from my standpoint for discharge. I emphasized to her the importance of changing her diet and adding fiber. As she has already had a recent C scope, a repeat one is not necessary. If she has another episode of diverticulitis, surgery should be considered. Patient understood and was ap preciative. Please call with questions Time=30min
== END 2019-04-16 14:25 | disposition home or self-care (01) ==
LOC: ED 09:00 → 2B-ACE 10:10
PROVIDERS: ADMIT Internal Medicine; ATTEND Internal Medicine
DX: K57.92 Diverticulitis of intestine, part unspecified, without perforation or abscess without bleeding (principal); I10 Essential (primary) hypertension; E78.5 Hyperlipidemia, unspecified; Z79.82 Long term (current) use of aspirin
CPT/HCPCS: 36415; 74019; 74176; 80048; 80053; 85025; 96365; 96366; 96367; 96372; 99284; G0378; J1644; J1956; J2543; J7030